=== PATIENT | female | born 1995 | race Caucasian/White ===

== ENCOUNTER 2020-05-02 16:53 | Emergency (ER) | payer OTHER ==
[2020-05-02 17:14] VITALS: BP 130/79; PULSE 99; TEMP 97.8; BMI 29.1
[2020-05-02] MEDS ORDERED: ACETAMINOPHEN 500 MG TABLET (FP) PO ONE (17:27)
--- NOTE | 2020-05-02 17:31 | PDOC ---
History of Present Illness - General Chief Complaint: Pain Stated Complaint: 12 WKS/BACK PAIN Time Seen by Provider: 05/02/20 17:23 History Source: Patient - History of Present Illness Timing/Duration: reports: intermittent Quality: reports: moderate Past History - Medical History Allergies/Adverse Reactions: Allergies Allergy/AdvReac Type Severity Reaction Status Date / Time No Known Allergies Allergy Verified 05/02/20 17:08 Home Medications: Ambulatory Orders Acetaminophen [Tylenol -] 1,000 mg PO Q6H #30 tablet 05/02/20 - Reproductive History Is Patient Now?: No - Psycho-Social/Smoking History Smoking History: Never smoked Information on smoking cessation initiated: No - Substance Abuse Hx (Audit-C & DAST Scrn) How often the patient has a drink containing alcohol: Never Score: In Men: 4 or > Positive; In Women: 3 or > Positive: 0 Screen Result (Pos requires Nsg. Audit-10AR): Negative Review of Systems - Review of Systems Constitutional: No: Chills, Fever ABD/GI: No: Nausea, Vomiting, Abdominal cramping : No: Dysuria Musculoskeletal: Yes: Back Pain *Physical Exam - Vital Signs Last Vital Signs Temp Pulse Resp BP Pulse Ox 97.8 F 99 H 16 130/79 99 05/02/20 17:08 05/02/20 17:08 05/02/20 17:08 05/02/20 17:08 05/02/20 17:08 - Physical Exam General Appearance: Yes: Appropriately Dressed. No: Apparent Distress HEENT: positive: Normal Voice Neck: positive: Supple Respiratory/Chest: negative: Respiratory Distress Gastrointestinal/Abdominal: positive: Soft. negative: Tender Musculoskeletal: negative: CVA Tenderness, Vertebral Tenderness Integumentary: positive: Dry, Warm Neurologic: positive: Fully Oriented, Alert, Normal Mood/Affect Medical Decision Making - Medical Decision Making 05/02/20 17:25 24 , ~ 11 weeks by dates with no issues of so far, last US ~2 weeks ago, here with intermittent back pain that she has had throughout her . Not taking anything for pain. No acute abdominal pain and no vaginal bleeding, dysuria, nausea, vomiting, fever or chills. Patient well- appearing and stable with unremarkable exam. DC with Tylenol and to follow-up with her OB Discharge - Discharge Information Problems reviewed: Yes Clinical Impression/Diagnosis: Lower back pain Qualifiers: Chronicity: unspecified Back pain laterality: unspecified Sciatica presence: without sciatica Qualified Code(s): M54.5 - Low back pain Condition: Stable Disposition: HOME - Additional Discharge Information Prescriptions: Acetaminophen [Tylenol -] 1,000 mg PO Q6H #30 tablet - Follow up/Referral Referrals: Eli Alberts MD [Primary Care Provider] - - Patient Discharge Instructions Patient Printed Discharge Instructions: Managing Symptoms of Additional Instructions: Take Tylenol as needed for pain and follow-up with your OB - Post Discharge Activity
[2020-05-02] MEDS ORDERED: ACETAMINOPHEN 325 MG TABLET (FP) ONE (17:41)
== END 2020-05-02 17:43 | disposition home or self-care (01) ==
LOC: JER 16:53
DX: M54.5 Low back pain (principal)
CPT/HCPCS: 99284-25